=== PATIENT | female | born 1990 | race Caucasian/White ===

== ENCOUNTER 2016-03-02 22:56 | Emergency (ER) | payer BC ==
[~2016-03-02] VITALS: Ht 154.9 cm; Wt 44.0 kg
[2016-03-03 00:30] VITALS: BP 133/76
[2016-03-03] MEDS ORDERED: IBUPROFEN 400 MG TABLET ONE (01:16)
[2016-03-03] MEDS ORDERED: DEXAMETHASONE SOD PHOSPHATE 10 MG/ML VIAL ONE (01:16)
[2016-03-03] MEDS ORDERED: CEPHALEXIN MONOHYDRATE 500 MG CAPSULE PO ONE ×2 (01:17→01:30)
[2016-03-03] MEDS ORDERED: IBUPROFEN 400 MG TABLET PO ONE (01:30)
[2016-03-03] MEDS ORDERED: DEXAMETHASONE SOD PHOSPHATE 4 MG/ML VIAL IV ONE (01:30)
== END 2016-03-03 02:35 | disposition home or self-care (01) ==
LOC: ER 22:59
DX: K12.2 Cellulitis and abscess of mouth (principal); Z88.2 Allergy status to sulfonamides; Z88.8 Allergy status to other drugs, medicaments and biological substances
CPT/HCPCS: 96374; 99284; A4606; J1100; Z7610